=== PATIENT | female | born 1995 | race African-American/Black ===

== ENCOUNTER 2017-05-13 17:24 | Emergency (ER) | payer MEDICAID ==
[~2017-05-13] VITALS: Ht 162.6 cm; Wt 104.0 kg
[2017-05-13] MEDS ORDERED: ALBUTEROL (0.083%) 2.5MG/3ML NEB HHN ONE (19:45)
[2017-05-13] MEDS ORDERED: PROMETHAZINE/DEXTROMETHORPHAN 6.25-15MG/5ML BOTTLE 120ML PO PRN (19:45)
[2017-05-13 20:20] VITALS: BP 133/89
== END 2017-05-13 21:25 | disposition home or self-care (01) ==
LOC: ER 17:24
DX: J40 Bronchitis, not specified as acute or chronic (principal)
CPT/HCPCS: 71045; 81025; 94640; 99283; J7611

== ENCOUNTER 2019-11-14 11:38 | Emergency (ER) | payer MEDICAID ==
[~2019-11-14] VITALS: Ht 160 cm; Wt 82.0 kg
[2019-11-14] MEDS ORDERED: ACETAMINOPHEN 325MG TABLET PO ONE (12:30)
[2019-11-14 13:34] VITALS: BP 108/77
== END 2019-11-14 13:41 | disposition home or self-care (01) ==
LOC: ER 11:38
DX: R51 Headache (principal); V43.62XA Car passenger injured in collision with other type car in traffic accident, initial encounter; Y93.9 Activity, unspecified; Y92.410 Unspecified street and highway as the place of occurrence of the external cause
CPT/HCPCS: 81025; 99284